=== PATIENT | male | born 1970 | race Asian ===

== ENCOUNTER 2022-01-17 13:41 | Emergency (ER) | payer OTHER ==
[2022-01-17 14:29] VITALS: BP 141/92; PULSE 73; TEMP 98; BMI 25.7
[2022-01-17] MEDS ORDERED: ACETAMINOPHEN 325 MG TABLET (FP) PO ONE (14:29)
[2022-01-17] MEDS ORDERED: ACETAMINOPHEN 325 MG TABLET (FP) ONE (14:44)
== END 2022-01-17 16:17 | disposition home or self-care (01) ==
LOC: FER 13:41
DX: M25.532 Pain in left wrist (principal); W01.0XXA Fall on same level from slipping, tripping and stumbling without subsequent striking against object, initial encounter
CPT/HCPCS: 73110-TC-RT-FY; 99283-25